=== PATIENT | male | born 1970 | race Caucasian/White ===

== ENCOUNTER 2020-12-24 08:43 | Day surgery (SDC) | payer OTHER ==
[~2020-12-24] VITALS: Ht 190.5 cm; Wt 172.3 kg
[~2020-12-24 08:43] MED LIST: ALLO300 PO; ASCO500 PO; ASPI81CH PO; INDO50 PO; LISI20 PO; OMEGA-3 FISH O1 EAC6 PO; ROSU10TA PO; vitamin d2 PO
--- NOTE | 2020-12-24 10:11 | NUR ---
History, Chart, Medications and Allergies reviewed before start of procedure. Lungs clear T/O to Auscultation. Patient confirms NPO status and agrees with scheduled surgery. Pre-Op teaching done. Pt verbalizes understanding. Patient states colon prep results clear. Patient States Post-Procedure ride home has been arranged.
[2020-12-24] MEDS ORDERED: METFORMIN HCL1000 M9 PO (10:14)
--- NOTE | 2020-12-24 11:08 | NUR ---
12/24/20 1107 Barbara Blum History, Chart, Medications and Allergies reviewed before start of procedure.MONITOR INTACT WITH CONTINUOUS PULSE OXIMETRY, 3-LEAD EKG, INTERMITTENT BP.O2 VIA N/C INTACT THROUGHOUT SEDATION/PROCEDURE. See Anesthesia record.
--- NOTE | 2020-12-24 12:07 | NUR ---
Patient up to Ambulate independently. Gait steady. Discharge instructions reviewed with patient. Patient verbalizes understanding. Copy given to patient to take home. Discharged via wheelchair to private car for ride home.
== END 2020-12-24 23:09 | disposition home or self-care (01) ==
LOC: ORSCMMR 08:43
PROVIDERS: Internal Medicine Gastroenterology
PROC: 0DBP8ZX Excision of Rectum, Via Natural or Artificial Opening Endoscopic, Diagnostic (ICD-10-PCS; principal; 2020-12-24 10:30)
PROC: 0DBL8ZX Excision of Transverse Colon, Via Natural or Artificial Opening Endoscopic, Diagnostic (ICD-10-PCS; principal; 2020-12-24 10:30)
DX: Z12.11 Encounter for screening for malignant neoplasm of colon (principal); Z86.010 Personal history of colon polyps; D12.3 Benign neoplasm of transverse colon; D12.8 Benign neoplasm of rectum; K57.30 Diverticulosis of large intestine without perforation or abscess without bleeding; K64.1 Second degree hemorrhoids; I10 Essential (primary) hypertension; E66.01 Morbid (severe) obesity due to excess calories; Z68.42 Body mass index [BMI] 45.0-49.9, adult; E11.9 Type 2 diabetes mellitus without complications; E78.00 Pure hypercholesterolemia, unspecified; Z79.899 Other long term (current) drug therapy
CPT/HCPCS: 82947; 88305; J2704; J7120

== ENCOUNTER → 2021-03-31 | Outpatient (CLI) | payer OTHER ==
[~2021-03-31] MED LIST changes: +METFORMIN HCL1000 M9 PO
== END ==
LOC: LAB SHORT 08:30
DX: J02.9 Acute pharyngitis, unspecified (principal)
CPT/HCPCS: 87081